=== PATIENT | female | born 1990 | race Caucasian/White ===

== ENCOUNTER 2017-03-30 15:06 | Emergency (ER) | payer BC, OTHER ==
[2017-03-30 15:29] VITALS: BP 118/72; PULSE 80; TEMP 98.5; BMI 33.3
[2017-03-30] MEDS ORDERED: predniSONE 10 MG TABLET (UD) PO ONE (15:46)
--- NOTE | 2017-03-30 15:51 | PDOC ---
History of Present Illness <Rocio Wynn - Last Filed: 03/30/17 15:45> - General History Source: Patient Exam Limitations: No Limitations - History of Present Illness Initial Comments: 03/30/17 15:58 The patient is a 26 year old female, with a significant past medical history of eczema, who walks into the emergency department with her friend with, two days of an allergic reaction. The patient reports to be allergic to cats. As per patient, she was visiting her aunt who has cats two days ago. She reports edema to her cheeks and eyes. She reports using Benadryl, which she believes made her symptoms worse. Secondary to her edema she reports pain around her eyes. The patient reports her health insurance has . She denies recent fevers, chills, headache or dizziness. She denies recent nausea, vomit, diarrhea or constipation. She denies recent dysuria, frequency, urgency or hematuria. She denies recent chest pain or shortness of breath. Allergies: NKA Past surgical history: None reported. Social history: +Social drinker (once a month). Nonsmoker. Denies recreational drug use. <Asya Navarro - Last Filed: 03/30/17 16:31> - General Chief Complaint: Allergic Reaction Stated Complaint: left face swelling Time Seen by Provider: 03/30/17 15:12 Past History - Past Medical History COPD: No Other medical history: denies - Suicide/Smoking/Psychosocial Hx Smoking History: Never smoked Hx Alcohol Use: No Drug/Substance Use Hx: No Substance Use Type: Alcohol <Rocio Wynn - Last Filed: 03/30/17 15:45> <Asya Navarro - Last Filed: 03/30/17 16:31> - Past Medical History Allergies/Adverse Reactions: Allergies Allergy/AdvReac Type Severity Reaction Status Date / Time No Known Allergies Allergy Verified 03/30/17 15:10 Home Medications: Ambulatory Orders Prednisone [Deltasone -] 10 mg PO ASDIR #14 tab 03/30/17 Triamcinolone 0.1% Cream [Aristocort] 120 gm TP BID #1 tube 03/30/17 Review of Systems - Review of Systems Able to Perform ROS?: Yes Is the patient limited Citizen Of [place] proficient: Yes HEENTM: Yes: Other (Edema of the cheeks and eyes. ) All Other Systems: Reviewed and Negative <Asya Navarro - Last Filed: 03/30/17 16:31> *Physical Exam - Vital Signs Last Vital Signs Temp Pulse Resp BP Pulse Ox 98.5 F 80 17 118/72 100 03/30/17 15:07 03/30/17 15:07 03/30/17 15:07 03/30/17 15:07 03/30/17 15:07 <Rocio Wynn - Last Filed: 03/30/17 15:45> - Vital Signs Last Vital Signs Temp Pulse Resp BP Pulse Ox 98.5 F 80 17 118/72 100 03/30/17 15:07 03/30/17 15:07 03/30/17 15:07 03/30/17 15:07 03/30/17 15:07 - Physical Exam General Appearance: Yes: Nourished, Appropriately Dressed, Other (Overweight.) HEENT: positive: Normal ENT Inspection, Normal Voice, Symmetrical, TMs Normal, Pharynx Normal, Other (Swelling of the eyes and cheeks.) Neck: positive: Normal Thyroid, Supple Respiratory/Chest: positive: Normal Breath Sounds Cardiovascular: positive: Regular Rhythm, Regular Rate Gastrointestinal/Abdominal: positive: Normal Bowel Sounds, Soft Extremity: positive: Normal Capillary Refill, Normal Inspection, Normal Range of Motion, Other (Eczema flare up of the inner aspect of the elbow.) Integumentary: positive: Normal Color, Dry, Warm Neurologic: positive: Fully Oriented, Alert (Alert and orientated x3) <Asya Navarro - Last Filed: 03/30/17 16:31> *DC/Admit/Observation/Transfer - Discharge Dispostion Admit: No <Rocio Wynn - Last Filed: 03/30/17 15:45> - Attestations Scribe Attestion: 03/30/17 16:16 Documentation prepared by Asya Navarro, acting as medical billing manager for Rocio Wynn MD. <Asya Navarro - Last Filed: 03/30/17 16:31> Diagnosis at time of Disposition: Allergic reaction Qualifiers: Encounter type: initial encounter Qualified Code(s): T78.40XA - Allergy, unspecified, initial encounter - Discharge Dispostion Disposition: HOME Condition at time of disposition: Stable - Prescriptions Prescriptions: Prednisone [Deltasone -] 10 mg PO ASDIR #14 tab Triamcinolone 0.1% Cream [Aristocort] 120 gm TP BID #1 tube - Patient Instructions Printed Discharge Instructions: DI for Eye Allergic Reaction
[2017-03-30] MEDS ORDERED: predniSONE 10 MG TABLET (UD) ONE (16:02)
[2017-03-30] MEDS ORDERED: predniSONE 20 MG TABLET (UD) ONE (16:03)
== END 2017-03-30 16:06 | disposition home or self-care (01) ==
LOC: FER 15:06
DX: T78.40XA Allergy, unspecified, initial encounter (principal)
CPT/HCPCS: 99281-25

== ENCOUNTER 2020-04-08 10:14 | Emergency (ER) | payer OTHER | END 2020-04-08 10:23 | disposition home or self-care (01) | LOC: JVIRT 10:14 | DX: Z11.52 Encounter for screening for COVID-19 (principal) | CPT/HCPCS: C9803; G2012-GT; U0003 ==

== ENCOUNTER 2020-10-12 18:07 | Emergency (ER) | payer OTHER ==
[2020-10-12 18:16] VITALS: BP 121/81; PULSE 70; TEMP 98; BMI 36.1
[2020-10-12 20:06] LABS: EPI CELLS 15 /uL (0-25.1); HCG,QUALITATIVE URINE Negative; HYALINE CASTS 0 /uL (0-3.1); PH,URINE 5.5 (5.0-8.0); URINE APPEARANCE CLEAR; URINE BACTERIA 13 /uL (0-1359); URINE BILIRUBIN NEGATIVE (NEGATIVE); URINE COLOR YELLOW; URINE GLUCOSE (UA) NEGATIVE (NEGATIVE); URINE KETONE 1+ (NEGATIVE); URINE LEUK ESTERASE NEGATIVE (NEGATIVE); URINE NITRITE NEGATIVE (NEGATIVE); URINE PROTEIN NEGATIVE (NEGATIVE); URINE RBC 3 /uL (0-23.9); URINE UROBILINOGEN 0.2 mg/dL (0.2-1.0); URINE WBC 1 /uL (0-25.8)
== END 2020-10-12 20:56 | disposition home or self-care (01) ==
LOC: JERFT 18:07
PROC: 3E023GC Introduction of Other Therapeutic Substance into Muscle, Percutaneous Approach (ICD-10-PCS; principal; 2020-10-12)
DX: B37.3 Candidiasis of vulva and vagina (principal)
CPT/HCPCS: 36415; 81003; 82962; 84703; 87086; 87491; 87591; 96372; 99284-25